=== PATIENT | male | born 1970 | race Caucasian/White ===

== ENCOUNTER → 2016-07-25 | Outpatient (CLI) | payer OTHER ==
[~2016-07-25] MED LIST: IBUPROFEN400 MG PO; PERCOCET 10-321 EACH PO; XARELTO10 MG PO
[2016-07-25 12:51] LABS: BUN/CREATININE RATIO 18 (0-10)
== END ==
LOC: LAB 10:54
PROVIDERS: Orthopaedic Surgery
DX: Z01.812 Encounter for preprocedural laboratory examination (principal)
CPT/HCPCS: 36415; 80048; 86850; 86900; 86901

== ENCOUNTER 2016-07-26 05:50 | Observation (INO) | payer OTHER ==
[2016-07-26] MEDS ORDERED: IBUPROFEN400 MG PO (06:30)
[2016-07-27 05:32] LABS: HEMOGLOBIN 12.4 gm/dl (14.0-17.5); RED BLOOD COUNT 4.06 M/UL (4.20-5.50); WHITE BLOOD COUNT 15.1 K/UL (4.5-11.0)
[2016-07-27 05:45] LABS: BUN/CREATININE RATIO 13 (0-10)
[2016-07-27] MEDS ORDERED: XARELTO10 MG PO (11:44)
[2016-07-27] MEDS ORDERED: PERCOCET 10-321 EACH PO (11:44)
== END 2016-07-27 13:35 | disposition home or self-care (01) ==
LOC: OR 05:50 → M/S 12:25 → OR 12:45 → M/S 12:45
PROVIDERS: ADMIT Orthopaedic Surgery
PROC: 0SRD0L9 Replacement of Left Knee Joint with Medial Unicondylar Synthetic Substitute, Cemented, Open Approach (ICD-10-PCS; principal; 2016-07-26 08:15)
DX: M17.12 Unilateral primary osteoarthritis, left knee (principal); G89.29 Other chronic pain; M19.90 Unspecified osteoarthritis, unspecified site; Z80.8 Family history of malignant neoplasm of other organs or systems; Z82.49 Family history of ischemic heart disease and other diseases of the circulatory system; Z83.3 Family history of diabetes mellitus; Z79.1 Long term (current) use of non-steroidal anti-inflammatories (NSAID); Z79.891 Long term (current) use of opiate analgesic; Z79.899 Other long term (current) drug therapy; Z90.89 Acquired absence of other organs; Z98.890 Other specified postprocedural states
CPT/HCPCS: 36415; 73560; 80048; 85025; 96365; 96366; 96367; 96375; 97110; 97116; 97535; C1713; C1776; G0378; J0690; J1100; J1885; J2250; J2405; J2710; J2795; J3010; J3370; J7030; J7120